=== PATIENT | male | born 1990 | race Caucasian/White ===

== ENCOUNTER 2017-11-05 03:22 | Emergency (ER) | payer SELFPAY ==
[~2017-11-05] VITALS: Ht 152.4 cm; Wt 56.8 kg
[2017-11-05 03:24] VITALS: Ht 152.4 cm; Wt 56.8 kg
[2017-11-05 04:12] LABS: HEMOGLOBIN 15.3 g/dL (13.5-17.5); MCH 30.5 pg (26.0-34.0); MCHC 31.9 g/dL (31.0-37.0); MCV 95.8 fL (80.0-100.0); MEAN PLATELET VOLUME 10.9 fL (7.4-10.4); PLATELET COUNT 329 10x3/uL (130-400); RBC 5.01 10x6/uL (4.20-6.10); RDW 13.8 % (11.5-14.5); WBC 29.5 10x3/uL (4.8-10.8)
[2017-11-05 04:21] LABS: ANION GAP 35.6 mmol/L (8-16); BILIRUBIN - TOTAL 0.23 mg/dL (0.2-1.3); CALCIUM 8.9 mg/dL (8.5-10.1); CREATININE - SERUM 1.5 mg/dL (0.6-1.3); POTASSIUM - SERUM 4.8 mmol/L (3.5-5.1); PROTEIN - SERUM 7.7 g/dL (6.4-8.2)
[2017-11-05 04:23] LABS: CARBON DIOXIDE 7.2 mmol/L (21.0-32.0); UDS - AMPHET NEGATIVE QUAL (NEGATIVE); UDS - BARB NEGATIVE QUAL (NEGATIVE); UDS - BENZO NEGATIVE QUAL (NEGATIVE); UDS - COCAINE NEGATIVE QUAL (NEGATIVE); UDS - OPIATE NEGATIVE QUAL (NEGATIVE); UDS - PCP NEGATIVE QUAL (NEGATIVE); UDS - THC POSITIVE QUAL (NEGATIVE)
[2017-11-05 04:25] LABS: APPEARANCE CLEAR (CLEAR); BILIRUBIN NEGATIVE (NEGATIVE); COLOR YELLOW (YELLOW); GLUCOSE NEGATIVE (NEGATIVE); KETONE SMALL mg/dL (NEGATIVE); NITRITE NEGATIVE (NEGATIVE); PROTEIN 2+ mg/dL (NEGATIVE); SPECIFIC GRAVITY 1.025 (1.005-1.020); UROBILINOGEN NORMAL (NORMAL)
[2017-11-05 04:26] LABS: BACTERIA FEW /hpf (NONE SEEN); EPITHELIAL CELLS NSEEN /hpf (0-5); HYALINE CAST 0-5 /lpf (NONE SEEN); RED CELLS - URINE 0-5 /hpf (0-5); WHITE CELLS - URINE 0-5 /hpf (0-5)
[2017-11-05 05:03] LABS: EOSINOPHILS 1 % (0-7); LYMPHOCYTES 18 % (15-50); MONOCYTES 8 % (2-11); NEUTROPHILS 70 % (40-80); PLATELET ESTIMATE NORMAL
[2017-11-05 08:28] LABS: CALC OSMOLALITY 283 mosm/kg (275-300); CARBON DIOXIDE 26.6 mmol/L (21.0-32.0); CHLORIDE - SERUM 108 mmol/L (98-107); GLUCOSE 122 mg/dL (74-106); POTASSIUM - SERUM 4.2 mmol/L (3.5-5.1); SODIUM 142 mmol/L (136-145); UREA NITROGEN 13 mg/dL (7-18); eGFR NON AFRICAN AMERICAN > 90 mL/min (90-120)
[2017-11-05] MEDS ORDERED: HYDROCODON-ACE1 EAC7 PO (09:42)
[2017-11-05 11:10] VITALS: BP 134/83
== END 2017-11-05 10:30 | disposition home or self-care (01) ==
LOC: D.ER 03:22
PROVIDERS: Family Medicine
DX: G40.909 Epilepsy, unspecified, not intractable, without status epilepticus (principal); R41.0 Disorientation, unspecified; R41.82 Altered mental status, unspecified; R47.9 Unspecified speech disturbances